=== PATIENT | female | born 1985 | race Caucasian/White ===

== ENCOUNTER 2021-10-12 01:18 | Day surgery (SDC) | payer OTHER, SELFPAY ==
[2021-10-06 18:00] VITALS: BMI 24.6
--- NOTE | 2021-10-06 18:04 | SUR.PREOP ---
Report to the Outpatient Waiting Room, entrance under the green pavilion located off [facility], at time _1100 on date 10/12/21 . OR Time: 1300 . - You and your visitor will be asked to self-screen and do not enter if you have any COVID symptoms. - Only one visitor and NO children visitors are allowed at this time. - The patient visitor is requested to leave or wait in car when not with patient due to restrictions. - A mask is required within the hospital. Patients may have clear liquids (water, carbonated beverages, clear teas, apple juice) until 3 hours prior to surgery with a maximum of 20 ounces. - No food from midnight until time of surgery - Infants may have breast milk until 4 hours before surgery, infant formula 6 hours prior to surgery. - Children will be allowed to drink immediately following surgery. If applicable, please bring a bottle or sippy cup to assist with drinking. Juice, water, soda, and popsicles are readily available. For infants on formula, please bring formula the day of surgery. Pacifiers are allowed. Take the following medications with a SIP of water the morning of surgery: __n/a Medications to discontinue per physician n/a Date to take last dose____n/a Please no make-up, nail korean, hairspray, perfume, deodorant, or body powder the day of surgery. No jewelry (including any body piercings) or valuables the day of surgery, leave them at home. Please take a shower or bath the night before, or the morning of, surgery with an antibacterial soap. Wear comfortable, loose fitting clothing. Children are encouraged to wear pajamas. - Jewelry must be removed prior to entering the operating room. Rings and piercings that are not removed may be cut off. - The hospital will not accept responsibility for valuables. - Please leave all valuables, including medications, at home the day of surgery. If you are going home after surgery, a licensed mechanic driver must drive you home. - NO public transportation without another adult. - We recommend that an adult stay with you for 24 hours following discharge. - We also recommend that you do not drive, make important decision, drink alcoholic beverages, or take any drugs that were not prescribed by your health care provider for at least 24 hours after your discharge time. For Pediatric surgeries, we recommend two adults accompany the child home (only one inside the building at this time). Follow any additional instructions given to you from your surgeon. If you or anyone in your household have experienced Covid symptoms in the past week, please notify your surgeon or the nurse liaison at the phone number below for possible testing. Telephone instructions given to _sarah rosales and asked if any additional questions and then verbalized understanding. Patient advised to call surgeon office or pre surgery nurse liaison [phone] if any additional questions.
[2021-10-12] VITALS (9 sets, daily range): BP systolic 97–128; BP diastolic 53–83; PULSE 48–83; RESP 12–20; TEMP 36.1–36.6; O2SAT 97–100
--- NOTE | 2021-10-12 11:04 | WPDANESEPPF ---
Anes - Initial Pre Proc Eval Procedure: Operation Date: 10/12/21 13:00 Proposed Procedures p Bilateral Breast Augmentation - Main Quiroz MD Date/Time: 10/12/21 11:04 Surgeon: Main Quiroz MD Pre Op Diagnosis: micromastia Patient Data Age: 36 Gender: F Height: 1.7 m Weight: 71.36 kg Allergies Allergy/AdvReac Type Severity Reaction Status Date / Time No Known Allergies Allergy Unverified 10/12/21 11:19 Home Medications Medication Instructions Recorded Confirmed Type carisoprodol 350 mg tablet (Soma) 350 mg PO TID PRN muscle pain #21 10/04/21 10/12/21 Rx tabs docusate sodium 100 mg capsule 100 mg PO DAILY #14 caps 10/04/21 10/12/21 Rx (Colace) ondansetron HCl 4 mg tablet 4 mg PO Q8H #21 tabs 10/04/21 10/12/21 Rx oxycodone-acetaminophen 5 mg-325 1 tablet PO Q6H PRN pain #30 tabs 10/04/21 10/12/21 Rx mg tablet (Percocet) Patient hx anesthesia problems: none Family hx anesthesia problems: none Results Review: All pre-operative results and documents have been reviewed as part of the pre-operative evaluation. [facility] Past Medical History Medical History (Updated 10/12/21 @ 11:04 by Raji Edgar DO) Fibromyalgia Surgical History Surgical History Hx of section Social History Social History Smoking status: Never smoker Alcohol intake: current Drinks per week: 1 Substance use: never Other substance usage details: cbd oil for fibramyalgia Living arrangements: with family Spiritual care concerns: No Anes - Eval Final PreProcedure Day of Procedure 10/12/21 11:04 Patient weight: normal Heart: regular rate and rhythm Lungs: clear to auscultation Airway: Mallampati scale class II Neurological: alert and oriented Last oral intake: >/= 8 hours ASA classification: II Emergent: no Anesthetic plan: proceed Anesthesia type and monitoring: general LMA and standard monitoring Results Review: All pre-operative results and documents have been reviewed as part of the pre-operative evaluation. Informed Consent: The patient's anesthetic plan and its attendant risks and benefits were discussed with the patient/family/POA. Questions were solicited and answers provided to the satisfaction of the patient/family/POA.
[2021-10-12] MEDS: LACTATED RINGERS 1,000 ML 30 ML IV CONT ×2 (11:33→14:47)
--- NOTE | 2021-10-12 13:03 | WPDHPUPDATE1 ---
History and Physical Update Update Date/Time: 10/12/21 13:03 History and Physical has been reviewed, including an updated exam of the patient. There are NO changes in the patient's condition. Risks, benefits, and alternatives have been discussed and questions answered. Patient agrees to proceed with procedure.
--- NOTE | 2021-10-12 13:16 | W.PM.PROC2 ---
Procedure Note - Detailed Date of Procedure 10/12/21 Pre-op Diagnosis micromastia Post-op Diagnosis Same Procedure Performed bilateral augmentation mammaplasty Surgeon Main Quiroz MD Anesthesia General Findings Bilateral dual plane 3 augmentation Bilateral Deepak SoftTouch 320cc Right - Ref# [id number] SN [id number] Left - REF# [id number] SN [id number] Description of Procedure She is here today for bilateral breast augmentation. Previously and again today the risks, benefits, alternatives were discussed in extensive detail. I wanted her to be very realistic about the risks involved as well as expectations. She has a degree of glandular ptosis and understands this may and very possibly will exist post-operatively as a waterfall deformity (described to patient). We will attempt dual plane 3 to improve. She understands she can proceed with a second stage mastopexy at her expense if she desires. We discussed aftercare and what to monitor for. Made sure answered all of her questions to her satisfaction today and consent was obtained. Marked in the preoperative holding area with their verification. The patient was taken to the operating room placed supine on the operating table. Anesthesia was provided by anesthesiology. A surgical time-out was taken. We cleansed the skin and 1% lidocaine and 0.25% Marcaine with epinephrine was used anesthetize as a field block. She was prepped and draped in a standard sterile fashion. Tegaderm nipple [place] were placed. A 15 blade used to make an incision along the inframammary fold. Dissection was continued at 45 degree angle until the chest wall as identified. I elevated in a dual plane 3 fashion as above. I then incised the pectoralis major along its inferior border and completely released the inferior border leaving the medial border intact. I created a subpectoral pocket in the appropriate dimensions based on our preoperative planning for the implant. I then copiously irrigated with saline solution and verified a strict hemostasis. Next the use a triple antibiotic and Betadine containing solution to irrigate the pocket. I washed my gloves with the triple antibiotic and Betadine solution. We washed the implant immediately upon opening it with this solution and only opened it when we needed it. I used implant funnel and no-touch technique. The implant was introduced into the pocket using the funnel. Having verified positioning of the implant this was closed using 2-0 Vicryl followed by 3-0 Monocryl in a running subcuticular 4-0 Monocryl followed by tissue glue. Fluffs and surgical bra were placed. Patient was awoke and taken to PACU without difficulty. All instrument sponge counts were correct at the end of the case. Estimated Blood Loss 20 Drains No Packing No Pathology None sent Complications No immediate complications Condition Stable Disposition PACU
[2021-10-12] MEDS: ceFAZolin 2 GM/D5W 50 ML 2 GM/50 ML BAG IVPB (13:37)
[2021-10-12] MEDS: BUPIVACAINE HCL 0.25% PF 30 ML VIAL INFILTRATE (13:37)
[2021-10-12] MEDS: NACL 0.9% IRRIG POUR BOTTLE 900 ML, GENTAMICIN SULFATE INJ 160 MG, CLINDAMYCIN PHOS INJ... IRRIGATION (13:37)
[2021-10-12] MEDS: LIDO 1%/EPINEPHRINE 1:100,000 50 ML VIAL 30 ML INFILTRATE (13:37)
[2021-10-12] MEDS: TRANEXAMIC ACID 1,000MG/ISO100 1,000 MG/100 ML BAG 200 MG IVPB (13:45)
[2021-10-12] MEDS: fentaNYL CITRATE INJ (*CRX) 100 MCG/2 ML VIAL 25 MCG IV PUSH ×6 (14:59→15:25)
[2021-10-12] MEDS: HYDROmorphone HCL INJ (*CRX) 1 MG/ML SYR 0.5 MG IV PUSH ×2 (15:34→15:41)
[2021-10-12] MEDS: ONDANSETRON INJ 4 MG/2 ML VIAL IV PUSH (15:53)
[2021-10-12] MEDS: diphenhydrAMINE HCl INJ 50 MG/ML VIAL 25 MG IV PUSH (16:23)
[2021-10-12] MEDS: SCOPOLAMINE 1.5 MG PATCH TRANSDERM (16:25)
[2021-10-12] MEDS: oxyCODONE HCL (*CRX) 5 MG TAB IR PO (16:42)
== END 2021-10-12 17:15 | disposition home or self-care (01) ==
PROVIDERS: Visit Provider Surgery Plastic and Reconstructive Surgery
PROC: (CPT 19325; principal; 2021-10-12 13:00)
DX: Z41.1 Encounter for cosmetic surgery (principal); N64.82 Hypoplasia of breast
CPT/HCPCS: 19325; A9270; J0690; J1100; J1170; J1200; J1580; J2250; J2405; J2704; J3010; J7120